=== PATIENT | female | born 1950 | race Caucasian/White ===

== ENCOUNTER 2018-05-19 11:20 | Outpatient (CLI) | payer MEDICARE, OTHER ==
--- NOTE | 2018-05-19 13:24 | XRAY Report ---
Procedure Date: 05/19/2018 Accession Number: [id number] / [id number] Procedure: XRN - Ankle 3 View BILAT CPT Code: FULL RESULT: EXAMS: 1. Right Ankle Radiography 2. Left Ankle Radiography EXAM DATE: 05/19/2018 11:52 AM. CLINICAL HISTORY: FALL W/BILATERAL ANKLE PAIN. COMPARISON: None. TECHNIQUE: 3 views each ankle. 6 images are provided. FINDINGS: Right Ankle: Bones: No acute fracture. Joints: Small tibiotalar joint effusion. No subluxation. Moderate degenerative change. Soft Tissues: Mild lateral soft tissue swelling. Left Ankle: Bones: No acute fracture. Joints: Minimal degenerative change. No effusion. No subluxations. The ankle mortise is normally aligned. Soft Tissues: Normal. No soft tissue swelling. IMPRESSION: 1. Right: Soft tissue swelling and joint effusion. No acute fracture. 2. Left: No acute abnormality. RADIA
== END 2018-05-19 11:21 | disposition home or self-care (01) ==
LOC: DI.N 11:20
PROVIDERS: ATTEND Specialist
DX: M25.571 Pain in right ankle and joints of right foot (principal); M25.572 Pain in left ankle and joints of left foot; M25.471 Effusion, right ankle

== ENCOUNTER 2018-05-19 15:38 | Outpatient (CLI) | payer MEDICARE, OTHER ==
--- NOTE | 2018-05-19 16:14 | XRAY Report ---
Procedure Date: 05/19/2018 Accession Number: [id number] / [id number] Procedure: XR - Foot 3 View LT CPT Code: FULL RESULT: EXAM: LEFT FOOT RADIOGRAPHY. EXAM DATE: 05/19/2018 04:01 PM. CLINICAL HISTORY: Left midfoot edema. COMPARISON: Same day bilateral ankle radiographs. TECHNIQUE: 3 views. FINDINGS: Bones: No displaced fracture. No suspicious focal osseous lesion. Possible normal variant bipartite tibial hallux sesamoid. Small posterior calcaneal traction enthesophyte. Tiny os trigonum. Joints: No dislocation. Hallux valgus with mild osteophytic spurring and joint space narrowing at the first MTP joint. Minimal osteophytic spurring at the first interphalangeal joint. Minimal varus angulation of the fifth MTP joint. Minimal lateral subluxation at the fifth PIP joint. Minimal dorsal osteophytic spurring present throughout the midfoot. Moderate degenerative change at the tibiotalar joint. Soft Tissues: Soft tissue prominence medial to the first metatarsophalangeal joint and lateral to the fifth metatarsophalangeal joint. IMPRESSION: 1. No acute osseous abnormality. 2. Degenerative changes as above as well as bunion and Kia's bunion. RADIA
== END 2018-05-19 15:39 | disposition home or self-care (01) ==
LOC: DI 15:38
PROVIDERS: ATTEND Nurse Practitioner Family
DX: M19.072 Primary osteoarthritis, left ankle and foot (principal); M20.12 Hallux valgus (acquired), left foot; M21.612 Bunion of left foot; M21.622 Bunionette of left foot; M25.571 Pain in right ankle and joints of right foot; M25.572 Pain in left ankle and joints of left foot; M25.471 Effusion, right ankle

== ENCOUNTER 2021-03-15 03:29 | Emergency (ER) | payer MEDICARE, OTHER ==
[2021-03-15] MEDS ORDERED: LORazepam 2 MG/ML VIAL IM STA (04:37)
[2021-03-15] MEDS ORDERED: HALOPERIDOL 5 MG/ML VIAL IM STA (04:38)
[2021-03-15] MEDS ORDERED: ALPRAZolam 0.25 MG TABLET PO STA (05:03)
--- NOTE | 2021-03-15 05:39 | ED Physician Documentation ---
History of Present Illness - Stated complaint Stated Complaint: POS ALLERGIC REACTION, CRAMPS - Chief complaint Chief Complaint: General - History obtained from History obtained from: Patient - Additonal information Additional information: 71-year-old woman with history of high blood pressure and anxiety presents with multiple nonspecific symptoms after taking Tylenol PM for arthritis around 4 PM yesterday. She states that she has been having fluttering in her epigastric region as well as Loose stool and sensation of hyperalertness and possible anxiety. Denies chest pain, shortness of breath, nausea, lightheadedness, fever. Review of Systems Ten Systems: 10 systems reviewed and negative Constitutional: denies: Fever Cardiac: reports: Palpitations. denies: Chest pain / pressure Respiratory: denies: Dyspnea GI: reports: Diarrhea. 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 : None HEENT: None Psych: None Musculoskeletal: None Derm: None - Past Surgical History Past Surgical History: No - Present Medications Home Medications: Ambulatory Orders Medication Instructions Recorded Confirmed Acebutolol HCl 400 mg PO BID 04/30/20 03/15/21 Levothyroxine Sodium 25 mcg PO DAILY 03/15/21 03/15/21 [Levothyroxine] - Allergies Allergies/Adverse Reactions: Allergies Allergy/AdvReac Type Severity Reaction Status Date / Time Penicillins Allergy Rash Verified 03/15/21 03:49 cholecalciferol (vitamin D3) AdvReac Headache Verified 03/15/21 03:49 [From Vitamin D3] - Social History Does the pt smoke?: No Smoking Status: Never smoker Does the pt drink ETOH?: No Does the pt have substance abuse?: No - Immunizations Immunizations are current?: Yes - POLST Patient has POLST: No PD ED PE NORMAL - Vitals Vital signs reviewed: Yes - General General: Alert and oriented X 3, No acute distress, Well developed/nourished - HEENT HEENT: Atraumatic, PERRL, EOMI - Neck Neck: Supple, no meningeal sign - Cardiac Cardiac: RRR - Respiratory Respiratory: No respiratory distress, Clear bilaterally - Abdomen Abdomen: Non tender, Non distended - Derm Derm: Normal color - Extremities Extremities: No edema - Neuro Neuro: Alert and oriented X 3 - Psych Psych: Normal mood, Normal affect Results - Vitals Vitals: Vital Signs - 24 hr 03/15/21 03/15/21 03/15/21 03:45 04:13 04:57 Temperature 36.5 C Heart Rate 89 88 88 Respiratory 17 16 16 Rate Blood Pressure 216/122 H O2 Saturation 100 100 98 03/15/21 03/15/21 05:28 05:31 Temperature Heart Rate 81 80 Respiratory 12 12 Rate Blood Pressure 189/178 H 160/101 H O2 Saturation 95 95 Oxygen O2 Source Room air PD MEDICAL DECISION MAKING - ED course ED course: 71-year-old woman presents with anxiety and palpitations this evening. She says that she has stopped taking Xanax at home because she does not want to become dependent on it, but excepted a dose here in the emergency department. Her blood pressure improved after Xanax and she states that she is feeling better. I advised the patient to avoid taking the medication that she thinks is causing her symptoms. Strict return precautions given. She will follow up with her primary doctor. Departure - Departure Disposition: 01 Home, Self Care Clinical Impression: Palpitations, Diarrhea Condition: Good
[2021-03-15 06:21] VITALS: BP 153/92
== END 2021-03-15 06:24 | disposition home or self-care (01) ==
LOC: ED 03:29
DX: R00.2 Palpitations (principal); R00.0 Tachycardia, unspecified; R19.7 Diarrhea, unspecified; F41.9 Anxiety disorder, unspecified; I10 Essential (primary) hypertension
CPT/HCPCS: 93005; 99284; A9270

== ENCOUNTER 2021-05-14 09:51 | Outpatient (CLI) | payer MEDICARE, OTHER ==
--- NOTE | 2021-05-14 11:22 | XRAY Report ---
PROCEDURE: Foot 3 View RT INDICATIONS: PAIN IN RIGHT FOOT TECHNIQUE: 3 views of the foot were acquired. COMPARISON: None FINDINGS: Bones: No fractures or dislocations. No suspicious bony lesions. Mild metatarsus primus varus. Mod erate articular osteophyte formation at the first metatarsophalangeal joint. Mild articular osteophyt e formation at the tibiotalar, talonavicular, naviculocuneiform joints. Soft tissues: No tibiotalar joint effusion. Achilles tendon appears normal. IMPRESSION: 1. 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 2. Hindfoot osteoarthritis. 3. No acute fracture. No osseous lesion. If symptoms and/or clinical suspicion for pathology continue , further assessment with repeat plain films, or advanced imaging (e.g., CT, MRI, or bone scan) is re commended for further assessment. Reviewed by: Yoko Lowe MD on 05/14/2021 11:21 AM PDT Approved by: Yoko Lowe MD on 05/14/2021 11:21 AM PDT Station ID: [id number]
== END 2021-05-14 23:59 | disposition home or self-care (01) ==
LOC: DI.S 09:51
PROVIDERS: ATTEND Physician Assistant
DX: M79.671 Pain in right foot (principal); M19.071 Primary osteoarthritis, right ankle and foot; Q66.211 Congenital metatarsus primus varus, right foot

== ENCOUNTER 2021-06-14 16:30 | Emergency (ER) | payer MEDICARE, OTHER ==
[2021-06-14] MEDS ORDERED: ALPRAZolam 0.25 MG TABLET PO STA (16:53)
--- NOTE | 2021-06-14 16:54 | ED Physician Documentation ---
PD HPI ALTERED MENTAL STATUS - Stated complaint Stated Complaint: SHAKING/HEAD PX - Chief complaint Chief Complaint: Neuro - History obtained from History obtained from: Patient - Additional information Additional information: Was on prednisone about a month ago for 5 days for arthritic problem in her foot. This made her quite anxious culminating in taking half of the hydroxyzine yesterday which made her have very dry mouth, elevated blood pressures and a "splitting headache." Recently decreased her blood pressure medication, she has been taking Acebutolol, recently decreased dose from 1200 to 800 mg a day but as of yesterday went back to 1200 mg. 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 : None HEENT: None Psych: None Musculoskeletal: None Derm: None - Past Surgical History Past Surgical History: No - Present Medications Home Medications: Ambulatory Orders Medication Instructions Recorded Confirmed Acebutolol HCl 400 mg PO TID 04/30/20 06/14/21 Levothyroxine Sodium 25 mcg PO DAILY 03/15/21 03/15/21 [Levothyroxine] Alprazolam [Xanax] 1 - 2 tab PO Q6H PRN #10 tablet 06/14/21 Levothyroxine [Synthroid] 12.5 mg PO DAILY 06/14/21 06/14/21 - Allergies Allergies/Adverse Reactions: Allergies Allergy/AdvReac Type Severity Reaction Status Date / Time Penicillins Allergy Rash Verified 06/14/21 16:46 cholecalciferol (vitamin D3) AdvReac Headache Verified 06/14/21 16:46 [From Vitamin D3] - Social History Does the pt smoke?: No Smoking Status: Never smoker Does the pt drink ETOH?: No Does the pt have substance abuse?: No - Immunizations Immunizations are current?: Yes - POLST Patient has POLST: No PD ED PE NORMAL - Vitals Vital signs reviewed: Yes - General General: Alert and oriented X 3 (Anxious with slightly pressured speech. But well-appearing otherwise.) - HEENT HEENT: PERRL, EOMI - Neck Neck: Supple, no meningeal sign, No bony TTP - Cardiac Cardiac: RRR, No murmur - Respiratory Respiratory: No respiratory distress, Clear bilaterally - Abdomen Abdomen: Non tender - Neuro Neuro: Alert and oriented X 3, shade cutter 2-12 intact, No motor deficit, No sensory deficit, Normal speech Eye Opening: Spontaneous Motor: Obeys Commands Verbal: Oriented GCS Score: 15 - Psych Psych: Normal mood, Normal affect Results - Vitals Vitals: Vital Signs - 24 hr 06/14/21 16:46 Temperature 36.8 C Heart Rate 84 Respiratory 20 Rate Blood Pressure 229/122 H O2 Saturation 100 Oxygen O2 Source Room air - Labs Labs: Laboratory Tests 06/14/21 06/14/21 17:01 17:01 WBC 10.0 RBC 4.88 Hgb 15.0 Hct 45.3 MCV 92.8 MCH 30.7 MCHC 33.1 RDW 11.8 L Plt Count 330 MPV 9.9 Neut # (Auto) 6.8 H Lymph # (Auto) 2.2 [place] # (Auto) 0.7 Eos # (Auto) 0.2 Baso # (Auto) 0.1 Absolute Nucleated RBC 0.00 Nucleated RBC % 0.0 Sodium 125 L Potassium 3.9 Chloride 90 L Carbon Dioxide 24 Anion Gap 11.0 BUN 21 H Creatinine 1.2 H Estimated GFR (MDRD) 44 L Glucose 151 H Calcium 8.8 PD MEDICAL DECISION MAKING - ED course ED course: This is a codey 67-year-old woman who notes with dry mouth and shakiness after taking a dose of hydroxyzine yesterday and now today has persistent symptoms. She has been pushing fluids, "chugging" water and I think this is caused her acute hyponatremia which has caused the persistence of her symptoms despite not taking any antihistamines today. She felt better after a Xanax. Head CT interpreted contemporaneously by me was negative. Advised to free water restrict and increased salt a bit pending follow-up. Departure - Departure Disposition: 01 Home, Self Care Clinical Impression: Headache, Hypertension, Hyponatremia Condition: Good Record reviewed to determine appropriate education?: Yes Instructions: Fluids Limiting Dc Prescriptions: Alprazolam [Xanax] 1 - 2 tab PO Q6H PRN #10 tablet PRN Reason: Anxiety Comments: Prescription sent electronically to [facility] in [place]. Follow-up with your doctor next week as scheduled. Return for new or worsening symptoms. As discussed you need to limit your free water that you have been pushing and is okay to eat a little extra salt. Return if worsening.
[2021-06-14 17:06] LABS: BASOPHILS # (AUTO) 0.1 10^3/uL (0.0-0.1); BASOPHILS % (AUTO) 0.5 %; EOSINOPHILS # (AUTO) 0.2 10^3/uL (0.0-0.7); EOSINOPHILS % (AUTO) 2.4 %; HCT - HEMATOCRIT 45.3 % (37.0-47.0); LYMPHOCYTES # (AUTO) 2.2 10^3/uL (1.5-3.5); LYMPHOCYTES % (AUTO) 21.6 %; MEAN CORPUSCULAR HEMOGLOBIN 30.7 pg (27.0-31.0); MEAN CORPUSCULAR HGB CONC 33.1 g/dL (32.0-36.0); MEAN CORPUSCULAR VOLUME 92.8 fL (81.0-99.0); MEAN PLATELET VOLUME 9.9 fL (7.9-10.8); MONOCYTES # (AUTO) 0.7 10^3/uL (0.0-1.0); MONOCYTES % (AUTO) 7.4 %; NEUTROPHILS # (AUTO) 6.8 10^3/uL (1.5-6.6); NEUTROPHILS % (AUTO) 67.8 %; PLT - PLATELET COUNT 330 10^3/uL (130-450); RED BLOOD COUNT 4.88 10^6/uL (4.20-5.40); RED CELL DISTRIBUTION WIDTH 11.8 % (12.0-15.0)
[2021-06-14 17:13] LABS: CALCIUM 8.8 mg/dL (8.5-10.3); CREATININE 1.2 mg/dL (0.4-1.0); POTASSIUM 3.9 mmol/L (3.5-5.0)
--- NOTE | 2021-06-14 17:35 | CT Report ---
PROCEDURE: HEAD WO INDICATIONS: Headache TECHNIQUE: Noncontrast 4.5 mm thick angled axial sections acquired from the foramen magnum to the vertex. For r adiation dose reduction, the following was used: automated exposure control, adjustment of mA and/or kV according to patient size. COMPARISON: None. FINDINGS: Image quality: There is streak artifact seen through the skull base. CSF spaces: Basal cisterns are patent. No extra-axial fluid collections. Ventricles are normal in size and shape. Brain: No midline shift. No intracranial masses or hemorrhage. Wetzel-white matter interface is norm al. Skull and face: Calvarium and visualized facial bones are intact, without suspicious lesions. Hyper ostosis frontalis is incidentally noted, which is not frankly abnormal for a female patient of this a ge. Sinuses: Visualized sinuses and mastoids are clear. IMPRESSION: Unremarkable intracranial examination for age, without an imaging expiration found for the patient's presenting history. No intracranial hemorrhage is seen. If it would be helpful for clinical management decision making, please consider a dedicated brain MRI (without and with contrast) for further evaluation (assuming that there is no contraindication). Reviewed by: Orlando Cohen MD on 06/14/2021 4:34 PM ABRAHAM Approved by: Orlando Cohen MD on 06/14/2021 4:34 PM ABRAHAM Station ID: [id number]
[2021-06-14 17:55] VITALS: BP 169/94
== END 2021-06-14 17:55 | disposition home or self-care (01) ==
LOC: ED 16:30
DX: R51.9 Headache, unspecified (principal); I10 Essential (primary) hypertension; E87.1 Hypo-osmolality and hyponatremia
CPT/HCPCS: 36415; 70450; 80048; 85025; 99284; A9270

== ENCOUNTER 2021-07-28 03:24 | Emergency (ER) | payer MEDICARE, OTHER ==
--- NOTE | 2021-07-28 04:30 | ED Physician Documentation ---
History of Present Illness - Stated complaint Stated Complaint: ANXIETY/MUSCLE TIGHTNESS/WEAKNESS - Chief complaint Chief Complaint: Neuro - History obtained from History obtained from: Patient - History of Present Illness Timing: Today Pain level max: 0 Pain level now: 0 - Additonal information Additional information: patient c/o "shivering, shaking every time I take this medication" (per patient). She says she was prescribed carvedilol 2 weeks ago and that she has generalized tremulousness and anxiety after each dose. She says she had been taking xanax on a PRN basis up until last Thursday when her primary care provider stopped prescribing it. 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 HEENT: None Psych: None Musculoskeletal: None Derm: None - Past Surgical History Past Surgical History: No - Present Medications Home Medications: Ambulatory Orders Medication Instructions Recorded Confirmed Alprazolam [Xanax] 1 - 2 tab PO Q6H PRN #10 tablet 06/14/21 07/28/21 ALPRAZolam [Alprazolam] 0.5 mg PO BID PRN #14 tablet 07/28/21 - Allergies Allergies/Adverse Reactions: Allergies Allergy/AdvReac Type Severity Reaction Status Date / Time Penicillins Allergy Rash Verified 06/14/21 16:46 cholecalciferol (vitamin D3) AdvReac Headache Verified 06/14/21 16:46 [From Vitamin D3] - Social History Does the pt smoke?: No Smoking Status: Never smoker Does the pt drink ETOH?: No Does the pt have substance abuse?: No - Immunizations Immunizations are current?: Yes - POLST Patient has POLST: No PD ED PE NORMAL - Vitals Vital signs reviewed: Yes - General General: Alert and oriented X 3, No acute distress, Well developed/nourished - HEENT HEENT: Moist mucous membranes - Cardiac Cardiac: RRR, No murmur - Respiratory Respiratory: No respiratory distress, Clear bilaterally - Abdomen Abdomen: Soft, Non tender Results - Vitals Vitals: Oxygen O2 Source Room air - Labs Labs: Laboratory Tests 07/28/21 05:15 Sodium 139 Potassium 3.2 L Chloride 106 Carbon Dioxide 21 Anion Gap 12.0 BUN 17 Creatinine 0.9 Estimated GFR (MDRD) 62 L Glucose 122 H Calcium 9.1 PD MEDICAL DECISION MAKING - ED course Complexity details: reviewed old records, reviewed results, re-evaluated patient, considered differential, d/w patient ED course: presents c/o tremulousness and anxiety which she feels is temporally related to dosing of her carvedilol, which she has been taking BID x 2 weeks. I note she was T+R from this ED last month for similar symptoms, which were thought to be due to prednisone on that visit. She was noted to have hyponatremia on previous visit (125) and thus BMP checked tonight, sodium level is now normal. It would seem unlikely, though possible, that her carvedilol is causing her symptoms of anxiety and tremulousness, but she says xanax has controlled these symptoms reliably in the past. she is given po xanax in ED and short course of alprazolam sent to her pharmacy. She is instructed to follow up with her PMD to discuss these symptoms and to consider whether medication change(s) would be to her benefit Departure - Departure Disposition: 01 Home, Self Care Clinical Impression: Anxiety Hypertension Qualifiers: Hypertension type: unspecified Qualified Code(s): I10 - Essential (primary) hypertension Condition: Good Instructions: ED HTN Established, ED Hypertension Conf Out Of Control, ED Panic Attack Prescriptions: ALPRAZolam [Alprazolam] 0.5 mg PO BID PRN #14 tablet PRN Reason: Anxiety Comments: A prescription for alprazolam has been electronically submitted to [facility] in [place]. Follow up with your primary care provider, next available appointment, to discuss options for blood pressure medication(s) as well as options for control of your episodes of anxiety Discharge Date/Time: 07/28/21 06:54
[2021-07-28] MEDS ORDERED: ALPRAZolam 0.25 MG TABLET PO STA (04:43)
[2021-07-28 05:27] LABS: CALCIUM 9.1 mg/dL (8.5-10.3); CREATININE 0.9 mg/dL (0.4-1.0); POTASSIUM 3.2 mmol/L (3.5-5.0)
[2021-07-28 06:52] VITALS: BP 145/69
== END 2021-07-28 06:54 | disposition home or self-care (01) ==
LOC: ED 03:24
DX: F41.9 Anxiety disorder, unspecified (principal); I10 Essential (primary) hypertension
CPT/HCPCS: 36415; 80048; 99283; A9270

== ENCOUNTER 2021-08-23 01:37 | Emergency (ER) | payer MEDICARE, OTHER ==
--- NOTE | 2021-08-23 02:37 | ED Physician Documentation ---
History of Present Illness - Stated complaint Stated Complaint: MED REACTION - Chief complaint Chief Complaint: General - History obtained from History obtained from: Patient - History of Present Illness Timing: How many days ago (2) Pain level now: 2 Improved by: nothing Worsened by: patient perceives that her symptoms temporally correlate with taking zoloft past 2 days - Additonal information Additional information: c/o insomnia, generalized headache, dizziness, unsteady gait. She feels that these symptoms are temporally related to doses of zoloft which she took today and yesterday (just started 08/20). She has alprazolam to be used PRN for anxiety, but this did not alleviate her symptoms tonight Review of Systems Constitutional: reports: Reviewed and negative Cardiac: reports: Reviewed and negative Respiratory: reports: Reviewed and negative GI: reports: Reviewed and negative Neurologic: reports: Headache. 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 HEENT: None Psych: None Musculoskeletal: None Derm: None - Past Surgical History Past Surgical History: No - Present Medications Home Medications: Ambulatory Orders Medication Instructions Recorded Confirmed Alprazolam [Xanax] 1 tab PO BID PRN 08/23/21 08/23/21 LORazepam [Ativan] 0.5 mg PO TID PRN #10 tablet 08/23/21 Sertraline [Zoloft] 25 mg PO DAILY 08/23/21 08/23/21 cloNIDine [Catapres] 0.1 mg PO DAILY 08/23/21 08/23/21 - Allergies Allergies/Adverse Reactions: Allergies Allergy/AdvReac Type Severity Reaction Status Date / Time Penicillins Allergy Rash Verified 06/14/21 16:46 cholecalciferol (vitamin D3) AdvReac Headache Verified 06/14/21 16:46 [From Vitamin D3] - Social History Does the pt smoke?: No Smoking Status: Never smoker Does the pt drink ETOH?: No Does the pt have substance abuse?: No - Immunizations Immunizations are current?: Yes - POLST Patient has POLST: No PD ED PE NORMAL - Vitals Vital signs reviewed: Yes - General General: Alert and oriented X 3, Well developed/nourished (a), Other (appears anxious at times) - HEENT HEENT: PERRL, EOMI, Moist mucous membranes - Neck Neck: Supple, no meningeal sign - Cardiac Cardiac: No murmur - Respiratory Respiratory: No respiratory distress, Clear bilaterally - Abdomen Abdomen: Normal bowel sounds, Soft, Non tender - Neuro Neuro: Alert and oriented X 3, machine lead burner 2-12 intact, No motor deficit, No sensory deficit, Normal speech PD ED PE EXPANDED - Cardiac Cardiac: Tachy, Regular Rhythm Results - Vitals Vitals: Oxygen O2 Source Room air - Labs Labs: Laboratory Tests 08/23/21 03:40 Sodium 138 Potassium 3.1 L Chloride 105 Carbon Dioxide 19 L Anion Gap 14.0 H BUN 17 Creatinine 1.0 Estimated GFR (MDRD) 55 L Glucose 110 H Calcium 9.3 PD MEDICAL DECISION MAKING - ED course Complexity details: reviewed old records, reviewed results, considered differential, d/w patient ED course: c/o insomnia, generalized BENEDICT, dizziness, ataxia (feels unsteady when ambulating). she attributes these symptoms to recently starting zoloft. I note t hat she had similar symptoms last month when I evaluated her in this ED, and at that time she attributed the symptoms to her anti-hypertensive medication. While some of her symptoms could be side effect of Zoloft or early/mild serotonin syndrome, I also point out to her that many of her symptoms could be attributed to anxiety (as well as high blood pressure that could be a result of feeling anxious; this could cause the generalized headache, for example). She acknowledges this possibility, but it is likely she will have recurrent symptoms with further doses of the sertraline, whether it is due to the medication or her perception/misattribution (either of which will likely hinder future attempts to maintain medication compliance with this patient). I instructed her to revisit the issue with her prescribing provider. She is given lorazepam PO in ED as well as clonidine, and these yielded desired results (alleviated her acute anxiety, resolved tachycardia, and significantly improved blood pressure). BMP performed due to hyponatremia noted incidentally on a recent ED visit. She is found to have mild hypokalemia (3.1) and given po potassium prior to d/c Departure - Departure Disposition: 01 Home, Self Care Clinical Impression: Anxiety Hypertension Qualifiers: Hypertension type: unspecified Qualified Code(s): I10 - Essential (primary) hypertension Headache Qualifiers: Headache type: unspecified Headache chronicity pattern: unspecified pattern Intractability: not intractable Qualified Code(s): R51.9 - Headache, unspecified Instructions: ED Cephalgia Unspecified, ED Potassium Deficiency Prescriptions: LORazepam [Ativan] 0.5 mg PO TID PRN #10 tablet PRN Reason: Anxiety Comments: A prescription for lorazepam has been electronically submitted to [facility] in [place]. As we discussed, this is a similar medication to the alprazolam you have been taking, but is longer in effect. You should take EITHER the lorazepam OR the alprazolam; do not take both of these medications. They are meant for short-term management of anxiety. Follow up with your primary care provider next week as scheduled. Your potassium was a little low today, but this is a coincidental finding (not low enough to cause symptoms). Discharge Date/Time: 08/23/21 04:40
[2021-08-23] MEDS ORDERED: cloNIDine 0.1 MG TABLET PO STA (03:29)
[2021-08-23] MEDS ORDERED: LORazepam 0.5 MG TABLET PO STA (03:29)
[2021-08-23 03:58] LABS: CALCIUM 9.3 mg/dL (8.5-10.3); POTASSIUM 3.1 mmol/L (3.5-5.0)
[2021-08-23] MEDS ORDERED: POTASSIUM CHLORIDE 20 MEQ TABLET PO STA (04:43)
[2021-08-23 06:51] VITALS: BP 153/90
== END 2021-08-23 04:40 | disposition home or self-care (01) ==
LOC: ED 01:37
DX: F41.9 Anxiety disorder, unspecified (principal); I10 Essential (primary) hypertension; R51.9 Headache, unspecified
CPT/HCPCS: 36415; 80048; 99284; A9270

== ENCOUNTER 2021-10-04 19:12 | Emergency (ER) | payer MEDICARE, OTHER ==
[2021-10-04] MEDS ORDERED: LORazepam 2 MG/ML VIAL IVP STA (19:45)
--- NOTE | 2021-10-04 20:03 | ED Physician Documentation ---
History of Present Illness - Stated complaint Stated Complaint: JESSICA VÁZQUEZ - Chief complaint Chief Complaint: General - History obtained from History obtained from: Patient - History of Present Illness Timing: Today Pain level max: 0 Pain level now: 0 - Additonal information Additional information: Patient is a 71-year-old female with a longstanding history of anxiety and panic attacks. She is recently started on Xanax and states that this seemed to be helping but she took it tonight and still feels very anxious with palpitations and shortness of breath. Feels similar to her prior panic attacks. She denies any chest pain. She has responded well to Ativan in the past. 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 HEENT: None Psych: None Musculoskeletal: None Derm: None - Past Surgical History Past Surgical History: No - Present Medications Home Medications: Ambulatory Orders Medication Instructions Recorded Confirmed Alprazolam [Xanax] 1 tab PO BID PRN 08/23/21 08/23/21 LORazepam [Ativan] 0.5 mg PO TID PRN #10 tablet 08/23/21 Sertraline [Zoloft] 25 mg PO DAILY 08/23/21 08/23/21 cloNIDine [Catapres] 0.1 mg PO DAILY 08/23/21 08/23/21 LORazepam [Ativan] 1 mg PO TID PRN #7 tablet 10/04/21 - Allergies Allergies/Adverse Reactions: Allergies Allergy/AdvReac Type Severity Reaction Status Date / Time Penicillins Allergy Rash Verified 10/04/21 19:30 cholecalciferol (vitamin D3) AdvReac Headache Verified 10/04/21 19:30 [From Vitamin D3] - Social History Does the pt smoke?: No Smoking Status: Never smoker Does the pt drink ETOH?: No Does the pt have substance abuse?: No - Immunizations Immunizations are current?: Yes - POLST Patient has POLST: No PD ED PE NORMAL - Vitals Vital signs reviewed: Yes - General General: Alert and oriented X 3, Other (Appears very anxious.) - HEENT HEENT: PERRL, Moist mucous membranes - Neck Neck: Supple, no meningeal sign - Cardiac Cardiac: Other (Tachycardic, regular) - Respiratory Respiratory: No respiratory distress, Clear bilaterally - Abdomen Abdomen: Soft, Non tender, Non distended - Derm Derm: Warm and dry - Extremities Extremities: No edema - Neuro Neuro: Alert and oriented X 3 - Psych Psych: Normal mood, Normal affect Results - Vitals Vitals: Vital Signs - 24 hr 10/04/21 10/04/21 10/04/21 19:26 20:04 20:36 Temperature 37 C Heart Rate 128 H 96 90 Respiratory 20 11 L 14 Rate Blood Pressure 193/105 H 173/104 H 160/90 H O2 Saturation 98 94 96 10/04/21 20:43 Temperature 37 C Heart Rate 90 Respiratory 14 Rate Blood Pressure 160/90 H O2 Saturation 96 Oxygen O2 Source Room air PD MEDICAL DECISION MAKING - ED course Complexity details: reviewed old records, re-evaluated patient, considered differential, d/w patient ED course: Patient is a 71-year-old female with a longstanding history of anxiety. She was given Ativan, 1 mg IV here. Symptoms resolved. Shaking resolved. Tachypnea, tachycardia and hypertension all improved. Patient request to go home at this time. She has an appointment with her doctor on Thursday to follow-up regarding medication. Patient counseled regarding signs and symptoms for which I believe and urgent re-evaluation would be necessary. Patient with good understanding of and agreement to plan and is comfortable going home at this time This document was made in part using voice recognition software. While efforts are made to proofread this document, sound alike and grammatical errors may occur. Departure - Departure Disposition: Home, Self Care Clinical Impression: Anxiety Condition: Good Instructions: ED Panic Attack Follow-Up: RAYNE CRESPO PA-C [Primary Care Provider] - Within 3 Days Prescriptions: LORazepam [Ativan] 1 mg PO TID PRN #7 tablet PRN Reason: anxiety Comments: Your prescription was sent to [facility] in [place]. Do not take the Xanax when taking the Ativan. Follow-up with your doctor on Thursday as scheduled to discuss your medications. Discharge Date/Time: 10/04/21 20:45
[2021-10-04 20:37] VITALS: BP 160/90
== END 2021-10-04 20:45 | disposition home or self-care (01) ==
LOC: ED 19:12
DX: F41.9 Anxiety disorder, unspecified (principal)
CPT/HCPCS: 96374; 99283; J2060

== ENCOUNTER 2021-10-06 13:06 | Emergency (ER) | payer MEDICARE, OTHER ==
--- NOTE | 2021-10-06 13:51 | ED Physician Documentation ---
History of Present Illness - Stated complaint Stated Complaint: MEDICATION REACTION - Chief complaint Chief Complaint: General - History obtained from History obtained from: Patient - History of Present Illness Timing: Today Pain level max: 0 Pain level now: 0 - Additonal information Additional information: 71-year-old female with a longstanding history of anxiety presents to the emergency department with increasing anxiety. She was seen here 2 days ago, written Ativan 1 mg p.o. 3 times daily as needed. She did not fill this prescription. She instead is taking Ativan 0.5 mg p.o. She took a half of a tablet and states that her symptoms are not better. Nothing makes it better or worse. No fevers. No chills. No vomiting. 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 HEENT: None Psych: None Musculoskeletal: None Derm: None - Past Surgical History Past Surgical History: No - Present Medications Home Medications: Ambulatory Orders Medication Instructions Recorded Confirmed Alprazolam [Xanax] 1 tab PO BID PRN 08/23/21 08/23/21 LORazepam [Ativan] 0.5 mg PO TID PRN #10 tablet 08/23/21 Sertraline [Zoloft] 25 mg PO DAILY 08/23/21 08/23/21 cloNIDine [Catapres] 0.1 mg PO DAILY 08/23/21 08/23/21 LORazepam [Ativan] 1 mg PO TID PRN #7 tablet 10/04/21 - Allergies Allergies/Adverse Reactions: Allergies Allergy/AdvReac Type Severity Reaction Status Date / Time Penicillins Allergy Rash Verified 10/06/21 13:13 cholecalciferol (vitamin D3) AdvReac Headache Verified 10/06/21 13:13 [From Vitamin D3] - Social History Does the pt smoke?: No Smoking Status: Never smoker Does the pt drink ETOH?: No Does the pt have substance abuse?: No - Immunizations Immunizations are current?: Yes - POLST Patient has POLST: No PD ED PE NORMAL - Vitals Vital signs reviewed: Yes - General General: Alert and oriented X 3, Other (appears anxious) - HEENT HEENT: Moist mucous membranes - Neck Neck: Supple, no meningeal sign - Cardiac Cardiac: RRR, Strong equal pulses - Respiratory Respiratory: No respiratory distress, Clear bilaterally - Derm Derm: Warm and dry - Neuro Neuro: Alert and oriented X 3 Results - Vitals Vitals: Vital Signs - 24 hr 10/06/21 10/06/21 13:13 13:15 Temperature 36.6 C Heart Rate 125 H 107 H Respiratory 18 20 Rate Blood Pressure 186/97 H 200/117 H O2 Saturation 99 97 Oxygen O2 Source Room air PD MEDICAL DECISION MAKING - ED course Complexity details: considered differential, d/w patient ED course: 71-year-old female who presents to the emergency department with anxiety. She states that she took half milligram of Ativan this morning. She states that it did not help. She was seen here 2 days ago and prescribed 1 mg tablets of Ativan but has not started this. She took a second dose of 0.5 mg of Ativan and her symptoms did improve. We will have her increase her dose to 1 mg up to 3 times a day. We will have her follow-up with her doctor tomorrow as scheduled. Patient counseled regarding signs and symptoms for which I believe and urgent re-evaluation would be necessary. Patient with good understanding of and agreement to plan and is comfortable going home at this time This document was made in part using voice recognition software. While efforts are made to proofread this document, sound alike and grammatical errors may occur. Departure - Departure Disposition: 01 Home, Self Care Clinical Impression: Anxiety Condition: Good Instructions: ED Panic Attack Follow-Up: RAYNE CRESPO PA-C [Primary Care Provider] - Tomorrow Comments: Please follow-up with your doctor tomorrow for further care. Return if you worsen. You would likely benefit from cognitive behavioral therapy.
[2021-10-06 14:49] VITALS: BP 180/99
== END 2021-10-06 14:48 | disposition home or self-care (01) ==
LOC: ED 13:06
DX: F41.9 Anxiety disorder, unspecified (principal); I10 Essential (primary) hypertension
CPT/HCPCS: 99281; 99282

== ENCOUNTER 2021-11-30 18:54 | Emergency (ER) | payer MEDICARE, OTHER ==
[2021-11-30 19:36] LABS: CALCIUM 9.3 mg/dL (8.5-10.3); POTASSIUM 3.7 mmol/L (3.5-5.0)
[2021-11-30] MEDS ORDERED: cloNIDine 0.1 MG TABLET PO STA (19:40)
--- NOTE | 2021-11-30 19:43 | ED Physician Documentation ---
PD HPI CHEST PAIN - Stated complaint Stated Complaint: ELEVATED BP - Chief complaint Chief Complaint: Cardiac - History obtained from History obtained from: Patient - Additional information Additional information: 71-year-old woman with history of hypertension, potential anxiety although she states she was misdiagnosed and after she saw a neurologist who thinks there are 2 muscles rubbing in her neck and is planned for an MRI of that next week and subsequently likely Botox. She comes in tonight because she felt panicky and took her blood pressure and it was in the range of 240/140. There is no associated chest pain or trouble breathing. Currently on propranolol for blood pressure and notes that her systolics are generally high at night and episodically. She had been on clonidine in the past without issue. She has intolerances to multiple other medications. 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 HEENT: None Psych: None Musculoskeletal: None Derm: None - Past Surgical History Past Surgical History: No - Present Medications Home Medications: Ambulatory Orders Medication Instructions Recorded Confirmed Alprazolam [Xanax] 1 tab PO BID PRN 08/23/21 08/23/21 LORazepam [Ativan] 0.5 mg PO TID PRN #10 tablet 08/23/21 Sertraline [Zoloft] 25 mg PO DAILY 08/23/21 08/23/21 cloNIDine [Catapres] 0.1 mg PO DAILY 08/23/21 08/23/21 LORazepam [Ativan] 1 mg PO TID PRN #7 tablet 10/04/21 cloNIDine [Catapres] 0.1 mg PO ONCE #90 tablet 11/30/21 - Allergies Allergies/Adverse Reactions: Allergies Allergy/AdvReac Type Severity Reaction Status Date / Time Penicillins Allergy Rash Verified 11/30/21 19:04 cholecalciferol (vitamin D3) AdvReac Headache Verified 11/30/21 19:04 [From Vitamin D3] - Social History Does the pt smoke?: No Smoking Status: Never smoker Does the pt drink ETOH?: No Does the pt have substance abuse?: No - Immunizations Immunizations are current?: Yes - POLST Patient has POLST: No PD ED PE NORMAL - Vitals Vital signs reviewed: Yes - General General: Alert and oriented X 3, No acute distress, Other (Tremulous but not specifically anxious, well-appearing and otherwise in no distress.) - Cardiac Cardiac: RRR, No murmur - Respiratory Respiratory: No respiratory distress, Clear bilaterally - Abdomen Abdomen: Non tender - Neuro Neuro: Alert and oriented X 3, No motor deficit, No sensory deficit, Normal speech Eye Opening: Spontaneous Motor: Obeys Commands Verbal: Oriented GCS Score: 15 - Psych Psych: Normal mood, Normal affect Results - Vitals Vitals: Vital Signs - 24 hr 11/30/21 11/30/21 18:57 19:12 Temperature 36.6 C Heart Rate 80 79 Respiratory 18 21 Rate Blood Pressure 230/96 H 214/95 H O2 Saturation 99 98 Oxygen O2 Source Room air - EKG (time done) 1901 Rate: Rate (enter#) (80) Rhythm: NSR [place]: Normal Intervals: Normal MO QRS: Normal Ischemia: Normal ST segments Computer interpretation: Agree with computer - Labs Labs: Laboratory Tests 11/30/21 19:20 Sodium 141 Potassium 3.7 Chloride 108 Carbon Dioxide 24 Anion Gap 9.0 BUN 23 H Creatinine 1.0 Estimated GFR (MDRD) 55 L Glucose 109 H Calcium 9.3 PD MEDICAL DECISION MAKING - ED course ED course: This is an 79-year-old woman with uncontrolled blood pressure which may be situational versus episodic. She has multiple intolerances to medications and it seems reasonable to start her on as needed clonidine which may serve a number of purposes for her. Departure - Departure Disposition: 01 Home, Self Care Clinical Impression: Elevated blood pressure reading Condition: Good Record reviewed to determine appropriate education?: Yes Instructions: ED Hypertension Conf Out Of Control Prescriptions: cloNIDine [Catapres] 0.1 mg PO ONCE #90 tablet Comments: I sent your prescription electronically to [facility] in [place]. As discussed you can take the clonidine kind of as needed, maybe when your systolic is over 140 and/or at bedtime. Should not take it more than 3 times a day. Follow-up with your primary care physician, next available appointment. Return for new or worsening symptoms.
[2021-11-30 20:00] VITALS: BP 178/87
== END 2021-11-30 20:00 | disposition home or self-care (01) ==
LOC: ED 18:54
DX: I10 Essential (primary) hypertension (principal)
CPT/HCPCS: 36415; 80048; 93005; 99283; 99284; A9270

== ENCOUNTER 2021-12-04 17:24 | Emergency (ER) | payer MEDICARE, OTHER ==
[2021-12-04] MEDS ORDERED: LORazepam 2 MG/ML VIAL IM STA (18:01)
--- NOTE | 2021-12-04 18:47 | ED Physician Documentation ---
History of Present Illness - Stated complaint Stated Complaint: HBP/HEADACHE - Chief complaint Chief Complaint: Cardiac - History obtained from History obtained from: Patient - History of Present Illness Timing: Today Pain level max: 0 Pain level now: 0 - Additonal information Additional information: Patient is a 71-year-old female who presents to the emergency department stating that she is feeling anxious and that her blood pressure is elevated. She states that she was seen here recently and given clonidine of her blood pressure spikes, she took this without relief. She states Ativan normally helps her. She states that she has neck spasms that are causing the tremors and that she is scheduled to receive Botox injections with a neurologist. She has an MRI scheduled in the morning. No chest pain or shortness of breath. Better with Ativan, nothing makes it worse. 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 HEENT: None Psych: Anxiety Musculoskeletal: None Derm: None - Past Surgical History Past Surgical History: No - Present Medications Home Medications: Ambulatory Orders Medication Instructions Recorded Confirmed Alprazolam [Xanax] 1 tab PO BID PRN 08/23/21 08/23/21 LORazepam [Ativan] 0.5 mg PO TID PRN #10 tablet 08/23/21 Sertraline [Zoloft] 25 mg PO DAILY 08/23/21 08/23/21 cloNIDine [Catapres] 0.1 mg PO DAILY 08/23/21 08/23/21 LORazepam [Ativan] 1 mg PO TID PRN #7 tablet 10/04/21 cloNIDine [Catapres] 0.1 mg PO ONCE #90 tablet 11/30/21 - Allergies Allergies/Adverse Reactions: Allergies Allergy/AdvReac Type Severity Reaction Status Date / Time Penicillins Allergy Rash Verified 12/04/21 17:31 cholecalciferol (vitamin D3) AdvReac Headache Verified 12/04/21 17:31 [From Vitamin D3] - Social History Does the pt smoke?: No Smoking Status: Never smoker Does the pt drink ETOH?: No Does the pt have substance abuse?: No - Immunizations Immunizations are current?: Yes - POLST Patient has POLST: No PD ED PE NORMAL - Vitals Vital signs reviewed: Yes - General General: Alert and oriented X 3, No acute distress, Other (Anxious appearing) - HEENT HEENT: PERRL, Moist mucous membranes - Neck Neck: Supple, no meningeal sign - Cardiac Cardiac: RRR, Strong equal pulses - Respiratory Respiratory: No respiratory distress, Clear bilaterally - Abdomen Abdomen: Soft, Non tender, Non distended - Derm Derm: Warm and dry - Extremities Extremities: No edema - Neuro Neuro: Alert and oriented X 3 - Psych Psych: Normal mood, Normal affect Results - Vitals Vitals: Vital Signs - 24 hr 12/04/21 12/04/21 12/04/21 17:27 18:14 18:55 Temperature 36.5 C Heart Rate 86 80 66 Respiratory 18 18 14 Rate Blood Pressure 208/103 H 124/77 O2 Saturation 98 98 Oxygen O2 Source Room air PD MEDICAL DECISION MAKING - ED course Complexity details: reviewed old records, considered differential, d/w patient ED course: Much better after IM Ativan. Otherwise asymptomatic here. She will follow up with her doctor for further care. No indication for further work-up at this time. Patient counseled regarding signs and symptoms for which I believe and urgent re-evaluation would be necessary. Patient with good understanding of and agreement to plan and is comfortable going home at this time This document was made in part using voice recognition software. While efforts are made to proofread this document, sound alike and grammatical errors may occur. Departure - Departure Disposition: 01 Home, Self Care Clinical Impression: Elevated blood pressure reading, Anxiety Condition: Good Instructions: ED HTN Established Follow-Up: RAYNE CRESPO PA-C [Primary Care Provider] - Within 1 week Comments: Please follow-up with your doctor for further care. Return if you worsen. Discharge Date/Time: 12/04/21 18:55
[2021-12-04 18:55] VITALS: BP 124/77
== END 2021-12-04 18:55 | disposition home or self-care (01) ==
LOC: ED 17:24
DX: F41.9 Anxiety disorder, unspecified (principal); I10 Essential (primary) hypertension
CPT/HCPCS: 96372; 99283; 99284; J2060

== ENCOUNTER 2021-12-05 07:15 | Outpatient (CLI) | payer MEDICARE, OTHER ==
--- NOTE | 2021-12-05 16:47 | MRI Report ---
PROCEDURE: Cervical Spine W/O INDICATIONS: Dystonic tremor TECHNIQUE: Noncontrast sagittal T1 spin echo and T2 fast spin echo, sagittal STIR, foraminal oblique sagittal T2 fast spin echo, and axial gradient echo or T2 fast spin echo through the cervical spine. COMPARISON: None. FINDINGS: Image quality: Excellent. Alignment and Curvature: There is normal bony alignment. Bone Marrow: Marrow demonstrates normal overall signal. Spinal Cord: Visualized spinal cord has normal size and signal. No cerebellar tonsillar herniation. Paraspinous Soft Tissues: No paravertebral masses. Prevertebral soft tissues are normal in thicknes s. C2-C3: No spinal canal or neural foraminal stenosis. C3-C4: Mild bilateral neural foraminal narrowing due to facet and uncovertebral hypertrophy, left g reater than right. No spinal canal stenosis. C4-C5: Moderate right and mild left neural foraminal stenosis due to facet and vertebral hypertrophy . No spinal canal stenosis. C5-C6: Moderate right and severe left neural foraminal stenosis due to facet and uncovertebral hyper trophy. Moderate spinal canal stenosis due to posterior disc-osteophyte complex and buckling of the l igamentum flavum flattening the ventral and dorsal cord surfaces. C6-C7: Posterior disc-osteophyte complex and buckling of ligamentum flavum combined to produce mild- to-moderate spinal canal stenosis with flattening of the ventral and dorsal cord surfaces. Facet and uncovertebral hypertrophy combine to produce severe left and moderate right neural foraminal narrowin g. C7-T1: No spinal canal or neural foraminal stenosis. IMPRESSION: Multilevel multifactorial degenerative changes. Moderate spinal canal stenosis at C5-C6 and mild-moderate spinal canal stenosis at C6-C7. Varying degrees of neural foraminal stenosis to severe, detailed above. Reviewed by: Jacoby Angel MD on 12/05/2021 4:46 PM PST Approved by: Jacoby Angel MD on 12/05/2021 4:46 PM PST Station ID: [id number]
== END 2021-12-05 07:16 | disposition home or self-care (01) ==
LOC: DI 07:15
PROVIDERS: ATTEND Psychiatry & Neurology Neurology
DX: G25.2 Other specified forms of tremor (principal); M47.812 Spondylosis without myelopathy or radiculopathy, cervical region; M50.322 Other cervical disc degeneration at C5-C6 level; M48.02 Spinal stenosis, cervical region

== ENCOUNTER 2021-12-18 12:44 | Emergency (ER) | payer MEDICARE, OTHER ==
--- NOTE | 2021-12-18 15:06 | ED Physician Documentation ---
PD HPI HEADACHE - Stated complaint Stated Complaint: HIGH BP - Chief complaint Chief Complaint: General - History obtained from History obtained from: Patient - History of Present Illness Timing - onset: Today (She noted her blood pressure to be elevated this late morning and afternoon despite new med of Clonidine 0.1 mg bid.), Chronic (She has had problems with high blood pressure for a fairly long time with different medications not working after a while or creating side effects of anxiety or tremor.) Timing - onset during: Light activity (She says her blood pressure was reasonable this morning at 145/91. She took her dose of clonidine and propranolol. However she and her blood pressure more elevated a couple of hours later at 190 systolic. This concerned her and it remained elevated with rechecks.) Timing - details: Gradual onset, Waxing and waning Worst headache ever?: No: Worst headache ever? (mild headache similar to when BP is elevated.) Location: Front Quality: Throbbing Associated symptoms: No: Fever, Stiff neck, Nausea, Vomiting, Weakness, Vision changes Contributing factors: Hypertension. No: Recent illness, Trauma Similar symptoms before: Diagnosis (Longstanding issue of elevated blood pressure with difficulty controlling on various different medicines. She also developed side effects to medicines after several months of use or so.) Recently seen: Clinic (Changing over from propranolol to clonidine as the propranolol had been giving her some muscle tremoring side effects. Decreasing from her 80 mg and has started clonidine 0.1 mg twice daily for the past 2 weeks.) Review of Systems Constitutional: denies: Fever, Chills Eyes: denies: Loss of vision, Decreased vision Nose: denies: Rhinorrhea / runny nose, Congestion Throat: denies: Sore throat Respiratory: denies: Cough Musculoskeletal: denies: Extremity swelling Neurologic: reports: Headache (mild pressure). 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 : None HEENT: None Psych: Anxiety Musculoskeletal: None Derm: None - Past Surgical History Past Surgical History: No - Present Medications Home Medications: Ambulatory Orders Medication Instructions Recorded Confirmed Alprazolam [Xanax] 1 tab PO BID PRN 08/23/21 08/23/21 LORazepam [Ativan] 0.5 mg PO TID PRN #10 tablet 08/23/21 Sertraline [Zoloft] 25 mg PO DAILY 08/23/21 08/23/21 cloNIDine [Catapres] 0.1 mg PO DAILY 08/23/21 08/23/21 LORazepam [Ativan] 1 mg PO TID PRN #7 tablet 10/04/21 cloNIDine [Catapres] 0.1 mg PO ONCE #90 tablet 11/30/21 - Allergies Allergies/Adverse Reactions: Allergies Allergy/AdvReac Type Severity Reaction Status Date / Time Penicillins Allergy Rash Verified 12/04/21 17:31 cholecalciferol (vitamin D3) AdvReac Headache Verified 12/04/21 17:31 [From Vitamin D3] - Social History Does the pt smoke?: No Smoking Status: Never smoker Does the pt drink ETOH?: No Does the pt have substance abuse?: No - Immunizations Immunizations are current?: Yes - POLST Patient has POLST: No PD ED PE NORMAL - Vitals Vital signs reviewed: Yes - General General: Alert and oriented X 3, No acute distress (seems anxious but is not appearing in pain nor distress. ), Well developed/nourished - Neck Neck: Supple, no meningeal sign, No adenopathy - Cardiac Cardiac: RRR, No murmur - Respiratory Respiratory: Clear bilaterally - Derm Derm: Normal color, Warm and dry - Extremities Extremities: No edema, No calf tenderness / cord - Neuro Neuro: Alert and oriented X 3, No motor deficit, Normal speech Results - Vitals Vitals: Vital Signs - 24 hr 12/18/21 12/18/21 12/18/21 12:53 14:55 15:52 Temperature 36.8 C 36.3 C L Heart Rate 78 74 67 Respiratory 18 16 14 Rate Blood Pressure 190/101 H 222/100 H 154/102 H O2 Saturation 99 98 98 Oxygen O2 Source Room air PD MEDICAL DECISION MAKING - ED course Complexity details: reviewed old records, re-evaluated patient (I really try to talk the patient into not taking her blood pressure often more than twice a day at most. Seems reasonable to increase her clonidine from 0.1 twice a day to 3 times a day. She is concerned about the interval time between dosings allowing blood pressure to be up. ), considered differential (History of anxiety and frequent visits over high blood pressure. She is adjusting medicines now with changing from propranolol to clonidine. She states her blood pressure was quite elevated at home today. She did have a mild headache. No focal deficits or visual change.), d/w patient ED course: She has had anxiety or tremor or blood pressure elevation in response to different medications in the past. She has had akathisia type II hydroxyzine. However she has some side effects to so many different medications that a lot of them are likely functional neurologic disorder rather than true side effects neurologically off her medicines. Departure - Departure Disposition: 01 Home, Self Care Clinical Impression: Anxiety, Hypertension Condition: Stable Follow-Up: Myah La ARNP [Provider Admit Priv/Credential] - Comments: I would continue with your current dosing and tapering regimen on your lorazepam and propranolol as directed by your primary care. I think it is reasonable to increase your clonidine to 0.1 mg tablets 3 times a day. The half-life it is of it is long enough that you really do not need to break it up into half tablets or have it more often than 2 or 3 times a day. Check your blood pressure twice daily morning and evening. Resisted temptation to take it more often as its only naturally going to be more elevated in the afternoon and more elevated when you are feeling shaky and with repeated readings. Stay well-hydrated with low-salt diet. Continue your other usual medicines. Follow-up with your primary care. Discharge Date/Time: 12/18/21 15:52
[2021-12-18 15:55] VITALS: BP 154/102
== END 2021-12-18 15:52 | disposition home or self-care (01) ==
LOC: ED 12:44
DX: F41.9 Anxiety disorder, unspecified (principal); I10 Essential (primary) hypertension
CPT/HCPCS: 99281; 99284

== ENCOUNTER 2022-02-14 07:40 | Outpatient (CLI) | payer MEDICARE, OTHER ==
[2022-02-14 14:53] LABS: BASOPHILS % (AUTO) 0.5 %; EOSINOPHILS # (AUTO) 0.3 10^3/uL (0.0-0.7); EOSINOPHILS % (AUTO) 3.2 %; HCT - HEMATOCRIT 47.8 % (37.0-47.0); LYMPHOCYTES # (AUTO) 1.9 10^3/uL (1.5-3.5); LYMPHOCYTES % (AUTO) 24.2 %; MEAN CORPUSCULAR HEMOGLOBIN 30.7 pg (27.0-31.0); MEAN CORPUSCULAR HGB CONC 31.4 g/dL (32.0-36.0); MONOCYTES # (AUTO) 0.7 10^3/uL (0.0-1.0); NEUTROPHILS # (AUTO) 5.1 10^3/uL (1.5-6.6); NEUTROPHILS % (AUTO) 62.9 %; PLT - PLATELET COUNT 277 10^3/uL (130-450); RED BLOOD COUNT 4.88 10^6/uL (4.20-5.40); RED CELL DISTRIBUTION WIDTH 11.9 % (12.0-15.0)
[2022-02-14 15:27] LABS: ALBUMIN 4.3 g/dL (3.2-5.5); ALBUMIN/GLOBULIN RATIO 1.3 (1.0-2.2); ALKALINE PHOSPHATASE 53 IU/L (42-121); ALT ALANINE AMINOTRANSFERASE 10 IU/L (10-60); AST ASPARTATE AMINOTRANSFERASE 15 IU/L (10-42); BILIRUBIN,TOTAL 0.6 mg/dL (0.2-1.0); BUN - BLOOD UREA NITROGEN 17 mg/dL (6-20); CALCIUM 9.5 mg/dL (8.5-10.3); CARBON DIOXIDE - CO2 27 mmol/L (21-32); CHLORIDE 107 mmol/L (101-111); CHOL/HDL RATIO 4.6 (<4.4); CHOLESTEROL 233 mg/dL; CREATININE 1.1 mg/dL (0.4-1.0); GFR - MDRD 49 (>89); GLUCOSE 108 mg/dL (70-100); HDL CHOLESTEROL 51 mg/dL; LDL CHOLESTEROL,CALCULATED 146 mg/dL; LDL/HDL RATIO 2.9 (<4.4); SODIUM 142 mmol/L (135-145); TOTAL PROTEIN 7.5 g/dL (6.7-8.2); TRIGLYCERIDES 178 mg/dL; VLDL CHOLESTEROL 36 mg/dL
[2022-02-15 07:09] LABS: HCV AB <0.1 s/co ratio (0.0-0.9)
== END 2022-02-14 07:41 | disposition home or self-care (01) ==
LOC: LAB.S 07:40
PROVIDERS: ATTEND Internal Medicine
DX: I10 Essential (primary) hypertension (principal); Z13.6 Encounter for screening for cardiovascular disorders; Z79.899 Other long term (current) drug therapy; R53.83 Other fatigue; R25.1 Tremor, unspecified; F41.9 Anxiety disorder, unspecified; Z11.59 Encounter for screening for other viral diseases
CPT/HCPCS: 36415; 80053; 80061; 83721; 84443; 85025; 86803

== ENCOUNTER 2022-03-14 11:51 | Outpatient (CLI) | payer MEDICARE, OTHER | END 2022-03-14 11:52 | disposition home or self-care (01) | LOC: LAB.S 11:51 | PROVIDERS: ATTEND Internal Medicine | DX: R51.9 Headache, unspecified (principal) | CPT/HCPCS: 36415; 85651; 86140 ==

== ENCOUNTER 2022-04-17 15:09 | Emergency (ER) | payer MEDICARE, OTHER ==
[2022-04-17 15:24] VITALS: BP 240/138
--- NOTE | 2022-04-17 15:48 | XRAY Report ---
PROCEDURE: Chest 1 View X-Ray INDICATIONS: Chest pain TECHNIQUE: One view of the chest was acquired. COMPARISON: None. FINDINGS: Surgical changes and devices: None. Lungs and pleura: No pleural effusions or pneumothorax. Lungs are clear. Mediastinum: Mediastinal contours appear normal. Heart size is normal. Bones and chest wall: No suspicious bony lesions. Overlying soft tissues appear unremarkable. IMPRESSION: No acute cardiopulmonary process demonstrated radiographically. Reviewed by: Jacoby Angel MD on 04/17/2022 3:46 PM PDT Approved by: Jacoby Angel MD on 04/17/2022 3:46 PM PDT Station ID: [id number]
[2022-04-17 15:49] LABS: BASOPHILS # (AUTO) 0.1 10^3/uL (0.0-0.1); BASOPHILS % (AUTO) 0.5 %; EOSINOPHILS # (AUTO) 0.2 10^3/uL (0.0-0.7); EOSINOPHILS % (AUTO) 2.1 %; HCT - HEMATOCRIT 47.9 % (37.0-47.0); HGB - HEMOGLOBIN 15.8 g/dL (12.0-16.0); LYMPHOCYTES # (AUTO) 2.3 10^3/uL (1.5-3.5); LYMPHOCYTES % (AUTO) 24.4 %; MEAN CORPUSCULAR VOLUME 94.1 fL (81.0-99.0); MEAN PLATELET VOLUME 10.3 fL (7.9-10.8); MONOCYTES # (AUTO) 0.8 10^3/uL (0.0-1.0); NEUTROPHILS % (AUTO) 64.7 %; PLT - PLATELET COUNT 304 10^3/uL (130-450); RED BLOOD COUNT 5.09 10^6/uL (4.20-5.40); RED CELL DISTRIBUTION WIDTH 11.6 % (12.0-15.0); WHITE BLOOD COUNT 9.3 x10^3/uL (4.8-10.8)
[2022-04-17 16:06] LABS: ALBUMIN 4.8 g/dL (3.2-5.5); ALBUMIN/GLOBULIN RATIO 1.3 (1.0-2.2); BILIRUBIN,TOTAL 1.3 mg/dL (0.2-1.0); CALCIUM 10.4 mg/dL (8.5-10.3); CREATININE 1.1 mg/dL (0.4-1.0); POTASSIUM 3.3 mmol/L (3.5-5.0); TOTAL PROTEIN 8.4 g/dL (6.7-8.2)
--- NOTE | 2022-04-17 16:26 | ED Physician Documentation ---
History of Present Illness - Stated complaint Stated Complaint: HIGH BP - Chief complaint Chief Complaint: Cardiac - History obtained from History obtained from: Patient - History of Present Illness Timing: How many days ago (2) - Additonal information Additional information: 72-year-old female with history of hypertension presents for uncontrolled blood pressures at home. Patient states that for the last 2 days her blood pressure has been greater than 200 systolic and she is concerned that her medications are no longer working appropriately. Patient states that for the last 2 days her primary care doctor has counseled her on increasing her blood pressure medication dose, however today her blood pressure continued to be elevated despite the medication changes she was making in her primary care physician recommended coming to the ER for evaluation. Patient denies chest pain, shortness of breath, abdominal pain, headache, blurred vision, hematuria, other complaints at this time. She is only concerned that her blood pressure is not controlled. Typically blood pressures at home running between 1 40-1 60 systolic Patient also expresses concern that her blood pressure could be related to her anxiety. 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 HEENT: None Psych: Anxiety Musculoskeletal: None Derm: None - Past Surgical History Past Surgical History: No - Present Medications Home Medications: Ambulatory Orders Medication Instructions Recorded Confirmed Alprazolam [Xanax] 1 tab PO BID PRN 08/23/21 08/23/21 LORazepam [Ativan] 0.5 mg PO TID PRN #10 tablet 08/23/21 Sertraline [Zoloft] 25 mg PO DAILY 08/23/21 08/23/21 cloNIDine [Catapres] 0.1 mg PO DAILY 08/23/21 08/23/21 LORazepam [Ativan] 1 mg PO TID PRN #7 tablet 10/04/21 cloNIDine [Catapres] 0.1 mg PO ONCE #90 tablet 11/30/21 cloNIDine [Catapres] 0.1 mg PO BID #30 tablet 04/17/22 - Allergies Allergies/Adverse Reactions: Allergies Allergy/AdvReac Type Severity Reaction Status Date / Time Penicillins Allergy Rash Verified 04/17/22 15:23 cholecalciferol (vitamin D3) AdvReac Headache Verified 04/17/22 15:23 [From Vitamin D3] - Social History Does the pt smoke?: No Smoking Status: Never smoker Does the pt drink ETOH?: No Does the pt have substance abuse?: No - Immunizations Immunizations are current?: Yes - POLST Patient has POLST: No PD ED PE NORMAL - Vitals Vital signs reviewed: Yes - General General: Alert and oriented X 3, No acute distress, Other - HEENT HEENT: Atraumatic, PERRL, EOMI, Ears normal - Neck Neck: Supple, no meningeal sign, No bony TTP, No adenopathy - Cardiac Cardiac: RRR, No gallop, No rub, Strong equal pulses - Respiratory Respiratory: No respiratory distress, Clear bilaterally - Abdomen Abdomen: Normal bowel sounds, Soft, Non tender, Non distended, No organomegaly - Back Back: No CVA TTP, No spinal TTP - Derm Derm: Normal color, Warm and dry, No rash - Extremities Extremities: No deformity, No tenderness to palpate, Normal ROM s pain, No edema - Neuro Neuro: Alert and oriented X 3, raisin 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 2-12 intact, No motor deficit, No sensory deficit, Normal speech - Psych Psych: Normal mood, Normal affect (anxious affect) Results - Vitals Vitals: Oxygen O2 Source Room air - Labs Labs: Laboratory Tests 04/17/22 04/17/22 04/17/22 15:41 15:41 15:41 WBC 9.3 RBC 5.09 Hgb 15.8 Hct 47.9 H MCV 94.1 MCH 31.0 MCHC 33.0 RDW 11.6 L Plt Count 304 MPV 10.3 Neut # (Auto) 6.0 Lymph # (Auto) 2.3 [place] # (Auto) 0.8 Eos # (Auto) 0.2 Baso # (Auto) 0.1 Absolute Nucleated RBC 0.00 Nucleated RBC % 0.0 Sodium 141 Potassium 3.3 L Chloride 103 Carbon Dioxide 29 Anion Gap 9.0 BUN 23 H Creatinine 1.1 H Estimated GFR (MDRD) 49 L Glucose 137 H Calcium 10.4 H Total Bilirubin 1.3 H AST 17 ALT 11 Alkaline Phosphatase 52 Troponin I High Sens 5.7 Total Protein 8.4 H Albumin 4.8 Globulin 3.6 Albumin/Globulin Ratio 1.3 Lipase 70 H PD MEDICAL DECISION MAKING - ED course Complexity details: reviewed results, re-evaluated patient, considered differential, d/w patient ED course: Patient is well-appearing with concerns for uncontrolled blood pressure at home. Patient does have elevated blood pressure, however otherwise denies any complaints that would indicate hypertensive urgency or emergency. Patient spends prolonged amount of time discussing her intricate medication adjustments and her benzodiazepine taper. Labs are unremarkable. Absolutely no evidence of endorgan injury. Patient is comfortable in ED bed. Patient is currently taking clonidine, propanolol, and lisinopril for her blood pressure. Patient has significant room to titrate upward in her medication regimen. At this time patient is only prescribed 5 mg of lisinopril, she was counseled on the maximum dose that she could take per day. In addition patient is only on 0.1 mg of clonidine once daily. She was instructed that she may increase these medications for additional control of her blood pressure. Patient keeps a blood pressure diary and she was encouraged to continue to do so until she can see her primary care physician. Patient stated that she would call her primary care physician first thing tomorrow morning to make a follow-up appointment. Further blood pressure medication adjustments per PCP Departure - Departure Disposition: 01 Home, Self Care Clinical Impression: Hypertension Qualifiers: Hypertension type: unspecified Qualified Code(s): I10 - Essential (primary) hypertension Condition: Stable Instructions: Hypertension Control, Choices Low Salt Prescriptions: cloNIDine [Catapres] 0.1 mg PO BID #30 tablet Discharge Date/Time: 04/17/22 17:11
== END 2022-04-17 17:11 | disposition home or self-care (01) ==
LOC: ED 15:09
DX: I10 Essential (primary) hypertension (principal)
CPT/HCPCS: 36415; 80053; 83690; 84484; 85025; 93005; 99282; 99284

== ENCOUNTER 2022-05-22 05:08 | Emergency (ER) | payer MEDICARE, OTHER ==
[2022-05-22] MEDS ORDERED: diazePAM 5 MG TABLET PO STA (05:29)
[2022-05-22 05:46] LABS: BASOPHILS # (AUTO) 0.1 10^3/uL (0.0-0.1); BASOPHILS % (AUTO) 0.9 %; EOSINOPHILS # (AUTO) 0.2 10^3/uL (0.0-0.7); EOSINOPHILS % (AUTO) 3.6 %; HCT - HEMATOCRIT 45.4 % (37.0-47.0); LYMPHOCYTES # (AUTO) 1.9 10^3/uL (1.5-3.5); LYMPHOCYTES % (AUTO) 35.2 %; MEAN CORPUSCULAR HEMOGLOBIN 31.1 pg (27.0-31.0); MEAN PLATELET VOLUME 10.4 fL (7.9-10.8); MONOCYTES # (AUTO) 0.5 10^3/uL (0.0-1.0); MONOCYTES % (AUTO) 9.3 %; NEUTROPHILS # (AUTO) 2.7 10^3/uL (1.5-6.6); NEUTROPHILS % (AUTO) 50.8 %; PLT - PLATELET COUNT 241 10^3/uL (130-450); RED BLOOD COUNT 4.83 10^6/uL (4.20-5.40); RED CELL DISTRIBUTION WIDTH 11.7 % (12.0-15.0); WHITE BLOOD COUNT 5.3 x10^3/uL (4.8-10.8)
[2022-05-22 05:57] LABS: ALBUMIN 4.1 g/dL (3.2-5.5); ALBUMIN/GLOBULIN RATIO 1.1 (1.0-2.2); ALKALINE PHOSPHATASE 43 IU/L (42-121); ALT ALANINE AMINOTRANSFERASE 11 IU/L (10-60); AST ASPARTATE AMINOTRANSFERASE 15 IU/L (10-42); BILIRUBIN,TOTAL 1.2 mg/dL (0.2-1.0); BUN - BLOOD UREA NITROGEN 19 mg/dL (6-20); CARBON DIOXIDE - CO2 28 mmol/L (21-32); CHLORIDE 105 mmol/L (101-111); CK- CREATINE KINASE 32 IU/L (22-269); CREATININE 1.1 mg/dL (0.4-1.0); ETOH - ETHANOL < 5.0 mg/dL; GFR - MDRD 49 (>89); GLUCOSE 103 mg/dL (70-100); LIPASE 58 U/L (22-51); MAGNESIUM 2.3 mg/dL (1.7-2.8); POTASSIUM 3.4 mmol/L (3.5-5.0); SODIUM 142 mmol/L (135-145); TOTAL PROTEIN 7.7 g/dL (6.7-8.2)
[2022-05-22 06:03] LABS: PT - PROTHROMBIN TIME 11.4 secs (9.9-12.6)
[2022-05-22 06:17] LABS: MUDS CUTOFF CONCENTRATIONS CUTOFF CONC BELOW:
[2022-05-22 06:30] LABS: AMPHETAMINE SCREEN,URINE NEGATIVE (NEGATIVE); BARBITURATE SCREEN,UR NEGATIVE (NEGATIVE); BENZODIAZEPINES SCREEN, URINE POSITIVE (NEGATIVE); COCAINE SCREEN URINE NEGATIVE (NEGATIVE); METHADONE SCREEN, URINE NEGATIVE (NEGATIVE); METHAMPHETAMINES SCREEN, URINE NEGATIVE (NEGATIVE); OPIATE SCREEN, URINE NEGATIVE (NEGATIVE); OXYCODONE SCREEN, URINE NEGATIVE (NEGATIVE); PROPOXYPHENE SCREEN, URINE NEGATIVE (NEGATIVE); THC CANNABINOID SCREEN, URINE NEGATIVE (NEGATIVE); TRICYCLIC ANTIDEPRESSANT,URINE NEGATIVE (NEGATIVE)
--- NOTE | 2022-05-22 07:25 | ED Physician Documentation ---
History of Present Illness - Stated complaint Stated Complaint: SHAKES - Chief complaint Chief Complaint: General - Additonal information Additional information: Patient is 72-year-old female presenting to the emergency department with chief complaint of anxiety, tremors, benzodiazepine dependence. Reports 2 days ago Her primary care doctor had titrated her down from her regular benzodiazepine dose. Reports that she took 0.25 last night and 1 mg this morning with no relief and increasingly worsening tremors and anxiety. Reports that this is the second time she has attempted to wean off benzodiazepines. States "I just cannot do it". Denies alcohol abuse or other substance abuse. Denies suicidal or homicidal ideation. Review of Systems Ten Systems: 10 systems reviewed and negative Constitutional: denies: Fever Eyes: denies: Loss of vision Ears: denies: Loss of hearing Nose: denies: Foreign Body Throat: denies: Dental pain / toothache Cardiac: denies: Chest pain / pressure Respiratory: denies: Dyspnea GI: denies: Abdominal Pain : denies: Dysuria Skin: denies: Rash Musculoskeletal: denies: Neck pain Neurologic: denies: Generalized weakness Psychiatric: reports: Anxiety PD PAST MEDICAL HISTORY - Past Medical History Past Medical History: Yes Cardiovascular: Hypertension Respiratory: None Neuro: None, Other Endocrine/Autoimmune: HyPOthyroidism GI: None 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 HEENT: None Psych: Anxiety Musculoskeletal: None Derm: None - Past Surgical History Past Surgical History: No - Present Medications Home Medications: Ambulatory Orders Medication Instructions Recorded Confirmed Alprazolam [Xanax] 1 tab PO BID PRN 08/23/21 08/23/21 LORazepam [Ativan] 0.5 mg PO TID PRN #10 tablet 08/23/21 Sertraline [Zoloft] 25 mg PO DAILY 08/23/21 08/23/21 cloNIDine [Catapres] 0.1 mg PO DAILY 08/23/21 08/23/21 LORazepam [Ativan] 1 mg PO TID PRN #7 tablet 10/04/21 cloNIDine [Catapres] 0.1 mg PO ONCE #90 tablet 11/30/21 cloNIDine [Catapres] 0.1 mg PO BID #30 tablet 04/17/22 Verapamil ER [Calan SA] 120 mg PO DAILY #30 tablet 05/12/22 - Allergies Allergies/Adverse Reactions: Allergies Allergy/AdvReac Type Severity Reaction Status Date / Time Penicillins Allergy Rash Verified 05/22/22 05:26 cholecalciferol (vitamin D3) AdvReac Headache Verified 05/22/22 05:26 [From Vitamin D3] - Social History Does the pt smoke?: No Smoking Status: Never smoker Does the pt drink ETOH?: No Does the pt have substance abuse?: No - Immunizations Immunizations are current?: Yes - POLST Patient has POLST: No PD ED PE NORMAL - Vitals Vital signs reviewed: Yes - General General: Alert and oriented X 3 - HEENT HEENT: Atraumatic, PERRL, EOMI, Ears normal, Moist mucous membranes - Neck Neck: Supple, no meningeal sign, No bony TTP - Cardiac Cardiac: RRR, No gallop, Strong equal pulses - Respiratory Respiratory: No respiratory distress - Abdomen Abdomen: Normal bowel sounds - Female Female : Deferred - Rectal Rectal: Deferred - Back Back: No CVA TTP - Derm Derm: Normal color - Extremities Extremities: No deformity - Neuro Neuro: Alert and oriented X 3, No motor deficit, No sensory deficit - Psych Psych: Normal mood Results - Vitals Vitals: Vital Signs - 24 hr 05/22/22 05/22/22 05/22/22 05:22 05:27 05:31 Temperature 36.5 C Heart Rate 117 H 115 H Respiratory 17 17 15 Rate Blood Pressure 162/90 H O2 Saturation 99 100 05/22/22 06:28 Temperature Heart Rate 79 Respiratory 12 Rate Blood Pressure 122/71 O2 Saturation 98 Oxygen O2 Source Room air - EKG (time done) 0552 Rate: Rate (enter#) (97) Rhythm: NSR [place]: Normal Intervals: Normal AL QRS: Normal Ischemia: Normal ST segments Computer interpretation: Agree with computer - Labs Labs: Laboratory Tests 05/22/22 05/22/22 05/22/22 05:30 05:30 05:30 WBC 5.3 RBC 4.83 Hgb 15.0 Hct 45.4 MCV 94.0 MCH 31.1 H MCHC 33.0 RDW 11.7 L Plt Count 241 MPV 10.4 Neut # (Auto) 2.7 Lymph # (Auto) 1.9 [place] # (Auto) 0.5 Eos # (Auto) 0.2 Baso # (Auto) 0.1 Absolute Nucleated RBC 0.00 Nucleated RBC % 0.0 PT INR Sodium 142 Potassium 3.4 L Chloride 105 Carbon Dioxide 28 Anion Gap 9.0 BUN 19 Creatinine 1.1 H Estimated GFR (MDRD) 49 L Glucose 103 H Calcium 10.0 Magnesium 2.3 Total Bilirubin 1.2 H AST 15 ALT 11 Alkaline Phosphatase 43 Total Creatine Kinase 32 Total Protein 7.7 Albumin 4.1 Globulin 3.6 Albumin/Globulin Ratio 1.1 Lipase 58 H TSH 6.73 H Urine Opiates Screen Ur Oxycodone Screen Urine Methadone Screen Ur Propoxyphene Screen Ur Barbiturates Screen Ur Tricyclics Screen Ur Phencyclidine Scrn Ur Amphetamine Screen U Methamphetamines Scrn U Benzodiazepines Scrn Urine Cocaine Screen U Cannabinoids Screen Ethyl Alcohol < 5.0 05/22/22 05/22/22 05:50 06:02 WBC RBC Hgb Hct MCV MCH MCHC RDW Plt Count MPV Neut # (Auto) Lymph # (Auto) [place] # (Auto) Eos # (Auto) Baso # (Auto) Absolute Nucleated RBC Nucleated RBC % PT 11.4 INR 1.0 Sodium Potassium Chloride Carbon Dioxide Anion Gap BUN Creatinine Estimated GFR (MDRD) Glucose Calcium Magnesium Total Bilirubin AST ALT Alkaline Phosphatase Total Creatine Kinase Total Protein Albumin Globulin Albumin/Globulin Ratio Lipase TSH Urine Opiates Screen NEGATIVE Ur Oxycodone Screen NEGATIVE Urine Methadone Screen NEGATIVE Ur Propoxyphene Screen NEGATIVE Ur Barbiturates Screen NEGATIVE Ur Tricyclics Screen NEGATIVE Ur Phencyclidine Scrn NEGATIVE Ur Amphetamine Screen NEGATIVE U Methamphetamines Scrn NEGATIVE U Benzodiazepines Scrn POSITIVE H Urine Cocaine Screen NEGATIVE U Cannabinoids Screen NEGATIVE Ethyl Alcohol PD MEDICAL DECISION MAKING - ED course Complexity details: reviewed results, d/w patient, d/w family ED course: Patient presents to the emergency department with findings concerning for benzodiazepine withdrawal in setting of known dependence and actively attempting to wean off benzodiazepines. Patient tremulous with low level tachycardia and anxious affect on arrival. Given p.o. Valium. EKG nonacute. Labs generally within normal limits or nonactionable. Social work consult placed at patient's request. Is interested in inpatient detox as needed. This time will be signing out to the oncoming physician, please see their documentation for further detail.
[2022-05-22 16:35] VITALS: BP 165/80
== END 2022-05-22 16:45 | disposition home or self-care (01) ==
LOC: ED 05:08
DX: F13.20 Sedative, hypnotic or anxiolytic dependence, uncomplicated (principal); I10 Essential (primary) hypertension; Z20.822 Contact with and (suspected) exposure to COVID-19
CPT/HCPCS: 36415; 80053; 80306; 82550; 83690; 83735; 84443; 85025; 85610; 87635; 93005; 99284; A9270; G0480; 80320

== ENCOUNTER 2022-06-13 18:29 | Outpatient (CLI) | payer MEDICARE, OTHER | END 2022-06-13 18:30 | disposition short-term general hospital (02) | LOC: EMS 18:29 | DX: R00.2 Palpitations (principal); R06.4 Hyperventilation | CPT/HCPCS: A0425; A0429 ==

== ENCOUNTER 2022-08-17 10:58 | Emergency (ER) | payer MEDICARE, OTHER ==
--- NOTE | 2022-08-17 12:48 | ED Physician Documentation ---
PD HPI MHE - Stated complaint Stated Complaint: ANXIETY,DIFF SLEEPING - Chief complaint Chief Complaint: MHE - History obtained from History obtained from: Patient, Family (spouse is with her.) - History of Present Illness Primary symptom: Anxiety, Other (insomnia). No: Suicidal ideation Timing - onset: How many days ago (she has chronic anxiety but feels it is considerably worsened since increasing her lexapro dose from 2.5 daily to bid several days ago. Unable to sleep the past 3 nights.) Contributing factors: Other (increased med dose per PCP.) Similar symptoms before: No diagnosis (history of anxiety chronically. had somewhat these symptoms when first started the lexapro 5 weeks ago. they dissipated after a week and were tolerable in the interim.) Recently seen: Clinic Review of Systems Constitutional: denies: Fever, Chills Nose: denies: Rhinorrhea / runny nose, Congestion Throat: denies: Sore throat Cardiac: denies: Chest pain / pressure, Palpitations, Pedal edema, Calf pain Respiratory: denies: Cough GI: denies: Abdominal Pain, Nausea, Vomiting Skin: denies: Rash, Lesions Neurologic: denies: Altered mental status, Headache Psychiatric: reports: Anxiety, Insomnia. 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 HEENT: None Psych: Anxiety Musculoskeletal: None Derm: None - Past Surgical History Past Surgical History: No - Present Medications Home Medications: Ambulatory Orders Medication Instructions Recorded Confirmed Escitalopram Oxalate 2.5 mg PO BID 08/17/22 08/17/22 Primidone 100 mg PO HS 08/17/22 08/17/22 Valsartan 160 mg PO DAILY 08/17/22 08/17/22 cloNIDine [Catapres] 0.1 mg PO TID 08/17/22 08/17/22 traZODone [Desyrel] 50 mg PO HS PRN #10 tablet 08/17/22 - Allergies Allergies/Adverse Reactions: Allergies Allergy/AdvReac Type Severity Reaction Status Date / Time Penicillins Allergy Rash Verified 08/17/22 11:08 Sulfa (Sulfonamide Allergy Rash Verified 08/17/22 11:08 Antibiotics) cholecalciferol (vitamin D3) AdvReac Headache Verified 08/17/22 11:08 [From Vitamin D3] - Social History Does the pt smoke?: No Smoking Status: Never smoker Does the pt drink ETOH?: No Does the pt have substance abuse?: No - Immunizations Immunizations are current?: Yes - POLST Patient has POLST: No PD ED PE NORMAL - Vitals Vital signs reviewed: Yes - General General: Alert and oriented X 3, No acute distress, Well developed/nourished - Neck Neck: Supple, no meningeal sign, No adenopathy - Cardiac Cardiac: RRR (mild tachycardic), No murmur - Respiratory Respiratory: No respiratory distress, Clear bilaterally - Derm Derm: Normal color, Warm and dry - Extremities Extremities: Normal ROM s pain, No edema, No calf tenderness / cord - Neuro Neuro: Alert and oriented X 3, No motor deficit, Normal speech - Psych Psych: No: Normal mood (anxious and talkative, seems nervous energy. coherent train of thought. ) Results - Vitals Vitals: Vital Signs - 24 hr 08/17/22 08/17/22 11:02 14:00 Temperature 36.4 C L 37 C Heart Rate 110 H 120 H Respiratory 18 24 Rate Blood Pressure 194/109 H 177/108 H O2 Saturation 100 97 Oxygen O2 Source Room air PD MEDICAL DECISION MAKING - ED course Complexity details: re-evaluated patient (she seemed to be calmer and states she is feeling a bit sleepy. i had given half dose of the trazodone now as she wanted to be sure did not feel badly from it right away. ), considered differential (anxiety and has had poor sleep for few days since increased lexapro dose. I asked what she tought would be helpful and she did not know. Willing to try new med for sleep/anxiety. I do not want to give benzo though in person with prior benzo tolerance/prolonged use. ), d/w patient, d/w family (spouse states prior benzo tolerance and took long time to wean off it. they do nott want benzos given/rx. ) Departure - Departure Disposition: 01 Home, Self Care Clinical Impression: Anxiety, Insomnia Condition: Stable Record reviewed to determine appropriate education?: Yes Follow-Up: DORCAS CUENCA MD [Primary Care Provider] - Prescriptions: traZODone [Desyrel] 50 mg PO HS PRN #10 tablet PRN Reason: Insomnia Comments: Decrease your escitalopram (Lexapro) back down to the 2.5 mg in the morning and no dose at night. Use trazodone 50 mg at night to help with sleep. Hopefully this will have some lingering effect through the day fourth less anxiety. Follow-up with your primary care on the as planned for reevaluation of the medication regimen. I sent your prescription to [facility] pharmacy in [place]. Discharge Date/Time: 08/17/22 14:41
[2022-08-17] MEDS ORDERED: traZODone 50 MG TABLET PO STA (13:11)
[2022-08-17 14:01] VITALS: BP 177/108
== END 2022-08-17 14:41 | disposition home or self-care (01) ==
LOC: ED 10:58
DX: F41.9 Anxiety disorder, unspecified (principal); G47.00 Insomnia, unspecified
CPT/HCPCS: 99282; 99284; A9270

== ENCOUNTER → 2022-08-25 | Outpatient (CLI) | payer MEDICARE, OTHER | END | disposition short-term general hospital (02) | LOC: EMS 08:19 | DX: R29.810 Facial weakness (principal); R26.9 Unspecified abnormalities of gait and mobility; R53.1 Weakness; I10 Essential (primary) hypertension | CPT/HCPCS: A0425; A0429 ==

== ENCOUNTER → 2022-08-30 | Outpatient (CLI) | payer MEDICARE, OTHER | END | disposition short-term general hospital (02) | LOC: EMS 15:09 | DX: Z04.6 Encounter for general psychiatric examination, requested by authority (principal); R45.851 Suicidal ideations; R63.8 Other symptoms and signs concerning food and fluid intake | CPT/HCPCS: A0425; A0429 ==